=== PATIENT | female | born 1955 | race Caucasian/White ===

== ENCOUNTER 2017-03-24 13:11 | Emergency (ER) | payer BC ==
[2017-03-24 13:29] VITALS: BP 152/83
[2017-03-24] MEDS ORDERED: Ondansetron 4 MG/2 ML SDV IVPUSH ONE (13:38)
[2017-03-24] MEDS ORDERED: Sodium Chloride 0.9% 10 ML Syringe FLUSH PRN (13:38)
[2017-03-24] MEDS ORDERED: HYDROmorphone 0.5 MG/0.5 ML Syringe IVPUSH ONE ×2 (13:40→17:43)
[2017-03-24] MEDS ORDERED: Sodium Chloride 0.9% 1,000 ML IV SCH (13:45)
--- NOTE | 2017-03-24 13:49 | EDM.PDOC ---
ED HPI GENERAL MEDICAL PROBLEM - General Chief Complaint: Genitourinary Problem Stated Complaint: LOWER ABDOMINAL PAIN AND BACK PAIN Time Seen by Provider: 03/24/17 13:33 Source of Information: Reports: Patient History Limitations: Reports: No Limitations - History of Present Illness INITIAL COMMENTS - FREE TEXT/NARRATIVE: Patient is a 61 year old female who presents to the E.D. complaining of right flank pain and difficulty voiding for the past 3 days. She has history of kidney stones and states symptoms are similar to previous episodes. Pain is constant, sharp, with waxing in waning intensity. Currently a 03/07. Took aleve this a.m. Right Flank Pain Score (Numeric/FACES): 7 - Related Data Allergies Allergy/AdvReac Type Severity Reaction Status Date / Time Iodinated Contrast- Oral and Allergy Anaphylactic Verified 03/25/17 21:24 IV Dye Shock Home Meds: Home Meds Aspirin 81 mg PO DAILY 03/24/17 [History] Escitalopram [Lexapro] 20 mg PO DAILY 03/24/17 [History] Levofloxacin [Levaquin] 500 mg PO QAM #10 tablet 03/24/17 [Rx] Lisinopril 30 mg PO DAILY 03/24/17 [History] Multivitamin [Daily Surekha] 1 tab PO DAILY 03/24/17 [History] Tamsulosin HCl [Flomax] 0.4 mg PO QAM #10 cap.er.24h 03/24/17 [Rx] atorvaSTATin Calcium [Atorvastatin Calcium] 20 mg PO DAILY 03/24/17 [History] buPROPion [Wellbutrin XL] 150 mg PO DAILY 03/24/17 [History] metFORMIN HCl [Metformin HCl ER] 500 mg PO DAILY 03/24/17 [History] Past Medical History HEENT History: Reports: Impaired Vision Genitourinary History: Reports: Renal Calculus [employer] History: Reports: Musculoskeletal History: Reports: Other (See Below) Other Musculoskeletal History: gangleon cyst removed from wrist Endocrine/Metabolic History: Reports: Hyperparathyroidism - Past Surgical History Female Surgical History: Reports: Hysterectomy Endocrine Surgical History: Reports: Parathyroidectomy Social & Family History - Family History Cardiac: Reports: Afib Neurological: Reports: CVA - Tobacco Use Smoking Status *Q: Never Smoker - Caffeine Use Caffeine Use: Reports: Coffee, Tea - Recreational Drug Use Recreational Drug Use: No ED ROS GENERAL - Review of Systems Review Of Systems: See Below Constitutional: Denies: Fever, Chills, Decreased Appetite Respiratory: Reports: No Symptoms Cardiovascular: Reports: No Symptoms GI/Abdominal: Reports: Abdominal Pain (suprapubic ) : Reports: Flank Pain, Frequency, Urinary Retention. Denies: Discharge, Dysuria, Hematuria, Urgency Musculoskeletal: Reports: Back Pain Neurological: Denies: Dizziness, Headache ED EXAM, RENAL/ - Physical Exam Exam: See Below Exam Limited By: No Limitations General Appearance: Alert, WD/WN, Moderate Distress Ears: Hearing Grossly Normal Nose: Normal Inspection Throat/Mouth: Normal Voice, No Airway Compromise Neck: Normal Inspection, Supple Respiratory/Chest: No Respiratory Distress, Lungs Clear, Normal Breath Sounds, Chest Non-Tender Cardiovascular: Normal Peripheral Pulses, Regular Rate, Rhythm GI/Abdominal: Normal Bowel Sounds, Soft, Non-Tender, No Organomegaly, No Distention Back Exam: Normal Inspection, Full Range of Motion, CVA Tenderness (R). No: CVA Tenderness (L), Paraspinal Tenderness, Vertebral Tenderness Extremities: Normal Inspection, Normal Range of Motion, Non-Tender, No Pedal Edema, Normal Capillary Refill Neurological: Alert, Oriented, CN II-XII Intact, Normal Cognition, No Motor/ Sensory Deficits Psychiatric: Normal Affect, Normal Mood Skin Exam: Warm, Dry, Intact, Normal Color Course - Vital Signs Last Recorded V/S: Last Vital Signs Temp 97 F 03/24/17 13:26 Pulse 79 03/24/17 13:26 Resp 18 03/24/17 13:26 BP 152/83 H 03/24/17 13:26 Pulse Ox - Orders/Labs/Meds Labs: Laboratory Tests 03/24/17 03/24/17 03/24/17 Range/Units 14:02 14:02 14:02 WBC 10.76 H (3.98-10.04) K/mm3 RBC 4.30 (3.98-5.22) M/mm3 Hgb 13.0 (11.2-15.7) gm/L Hct 39.9 (34.1-44.9) % MCV 92.8 (79.4-94.8) fl MCH 30.2 (25.6-32.2) pg MCHC 32.6 (32.2-35.5) g/dl RDW Std Deviation 42.2 (36.4-46.3) fL Plt Count 268 (182-369) K/mm3 MPV 10.1 (9.4-12.3) fl Neut % (Auto) 62.0 (34.0-71.1) % Lymph % (Auto) 28.6 (19.3-51.7) % [place] % (Auto) 7.8 (4.7-12.5) % Eos % (Auto) 1.3 (0.7-5.8) Baso % (Auto) 0.3 (0.1-1.2) % Neut # (Auto) 6.67 H (1.56-6.13) K/mm3 Lymph # (Auto) 3.08 (1.18-3.74) K/mm3 [place] # (Auto) 0.84 H (0.24-0.36) K/mm3 Eos # (Auto) 0.14 (0.04-0.36) K/mm3 Baso # (Auto) 0.03 (0.01-0.08) K/mm3 Sodium 143 (136-145) mEq/L Potassium 4.3 (3.5-5.1) mEq/L Chloride 105 (98-107) mEq/L Carbon Dioxide 29 (21-32) mEq/L Anion Gap 13.3 (5-15) BUN 21 H (7-18) mg/dL Creatinine 1.1 H (0.55-1.02) mg/dL Est Cr Clr Drug Dosing 49.55 mL/min Estimated GFR (MDRD) 51 (>60) mL/min BUN/Creatinine Ratio 19.1 H (14-18) Glucose 101 (74-106) mg/dL Calcium 9.2 (8.5-10.1) mg/dL Total Bilirubin 0.3 (0.2-1.0) mg/dL AST 19 (15-37) U/L ALT 26 (14-59) U/L Alkaline Phosphatase 98 (46-116) U/L C-Reactive Protein 0.5 (<1.0) mg/dL Total Protein 7.5 (6.4-8.2) g/dl Albumin 4.0 (3.4-5.0) g/dl Globulin 3.5 gm/dL Albumin/Globulin Ratio 1.1 (1-2) Urine Color Light yellow (Yellow) Urine Appearance Cloudy H (Clear) Urine pH 7.0 (5.0-8.0) Ur Specific [place] 1.025 (1.005-1.030) Urine Protein 3+ H (Negative) Urine Glucose (UA) Negative (Negative) Urine Ketones Negative (Negative) Urine Occult Blood 3+ H (Negative) Urine Nitrite Positive H (Negative) Urine Bilirubin Negative (Negative) Urine Urobilinogen 0.2 (0.2-1.0) Ur Leukocyte Esterase 3+ H (Negative) Urine RBC 5-10 H (0-5) /hpf Urine WBC Too numerous to cnt H (0-5) /hpf Ur Epithelial Cells 0-5 (0-5) /hpf Urine Bacteria Moderate H (FEW) /hpf Urine Mucus Not seen (FEW) /hpf Meds: Medications Discontinued Medications Generic Name Dose Route Start Last Admin Trade Name Freq PRN Reason Stop Dose Admin Hydromorphone HCl 0.5 mg 03/24/17 13:40 03/24/17 14:13 Dilaudid IVPUSH 03/24/17 13:41 0.5 mg ONETIME ONE Administration Hydromorphone HCl 1 mg 03/24/17 15:18 03/24/17 15:23 Dilaudid IVPUSH 03/24/17 15:19 1 mg ONETIME ONE Administration Hydromorphone HCl 0.5 mg 03/24/17 17:43 03/24/17 17:48 Dilaudid IVPUSH 03/24/17 17:44 0.5 mg ONETIME ONE Administration Sodium Chloride 1,000 mls @ 250 mls/hr 03/24/17 13:45 03/24/17 14:11 Normal Saline IV 150 mls/hr ASDIRECTED KEELY Administration Levofloxacin/Dextrose 500 mg/ 100 mls @ 100 mls/hr 03/24/17 15:57 03/24/17 16 :15 Premix IV 03/24/17 16:56 100 mls/hr ONETIME ONE Administration Ketorolac Tromethamine 15 mg 03/24/17 16:05 03/24/17 16:13 Toradol IVPUSH 03/24/17 16:06 15 mg ONETIME ONE Administration Lorazepam 0.5 mg 03/24/17 16:05 03/24/17 16:11 Ativan IVPUSH 03/24/17 16:06 0.5 mg ONETIME ONE Administration Ondansetron HCl 4 mg 03/24/17 13:38 03/24/17 14:11 Zofran IVPUSH 03/24/17 13:39 4 mg ONETIME ONE Administration Sodium Chloride 10 ml 03/24/17 13:38 03/24/17 14:12 Saline Flush FLUSH 10 ml ASDIRECTED PRN Administration Keep Vein Open Tamsulosin HCl 0.4 mg 03/24/17 17:43 03/24/17 17:51 Flomax PO 03/24/17 17:44 0.4 mg ONETIME ONE Administration - Re-Assessments/Exams Free Text/Narrative Re-Assessment/Exam: Labs reviewed: White blood cell count 10.76, neutrophil percentage 61.0, neutrophil #6.67, hemoglobin 13.0, sodium 143, potassium 4.3, crit 1.1, glucose 101. UA revealed cloudy appearance, protein 3+, occult blood 3+, nitrates positive, leukocyte esterase 3+, rbc's 5-10, urine wbc's too numerous to count, bacteria moderate. Urine culture ordered. CT of the abdomen and pelvis ordered with iv contrast only. It was brought to by attention she is allergic to dye. Thus will obtain without. CT of the abdomen and pelvis without contrast impression: Moderate right sided hydronephrosis and hydroureter. An obstructing calculi is not identified. Differential diagnosis includes recently passed calculi, postsurgical stricture , nonopaque obstructing material menses (hemorrhage, purulence, nonopaque calculus ) Clinical correlation is recommended. Bilateral renal calyceal lithiasis. Leukocytosis. Prior hysterectomy. Coronary atherosclerosis. Orderd levaquin 500mg IV ,ativan 1 mg, and toradol 15mg IVP. 03/24/17 17:[address] Klein gambling monitor [facility]rologists at [facility].Suggest discharge home with pain medications, antibiotics, and flomax. Book a IVP and will see the patient in the clinic. Patients pain is controlled although not completely resolved. Ordered dilaudid 0.5m ivp and flomax 0.4mg PO. Will discharge patient home with instructions as documented. Departure - Departure Time of Disposition: 17:38 Disposition: Home, Self-Care 01 Condition: Good Clinical Impression: Hydroureter, Acute right flank pain, UTI, Urinary tract infectious disease Hydronephrosis Qualifiers: Hydronephrosis type: unspecified Qualified Code(s): N13.30 - Unspecified hydronephrosis UTI (urinary tract infection) Qualifiers: Urinary tract infection type: acute cystitis Hematuria presence: with hematuria Qualified Code(s): N30.01 - Acute cystitis with hematuria - Discharge Information Prescriptions: Levofloxacin [Levaquin] 500 mg PO QAM #10 tablet Tamsulosin HCl [Flomax] 0.4 mg PO QAM #10 cap.er.24h Instructions: Urinary Tract Infection, Adult, Hydronephrosis, Flank Pain, Easy- to-Read Referrals: Miri Mantilla NP [Primary Care Provider] - Forms: ED Department Discharge Additional Instructions: Call [facility] tomorrow morning to schedule IVP and appt with Dr. Klein Urologists that day to be evaluated and go over IVP. Tell them you have a contrast allergy. Take percocet 1-2 tabs every 4 to 6 hours for pain.Zofran 4mg ODT every 6 hours for nausea. Push the fluids. Take the full course of levaquin. Return to the E.D. for any new or worsening symptoms.
[2017-03-24] MEDS ORDERED: HYDROmorphone 1 MG/ML Syringe IVPUSH ONE (15:18)
[2017-03-24] MEDS ORDERED: Levofloxacin/Dextrose 5%-Water 500 MG in Premix Bag 1 BAG IV ONE (15:57)
[2017-03-24] MEDS ORDERED: Ketorolac 30 MG/ML SDV IVPUSH ONE (16:05)
[2017-03-24] MEDS ORDERED: LORazepam 2 MG/ML MDV IVPUSH ONE (16:05)
[2017-03-24] MEDS ORDERED: Tamsulosin 0.4 MG Cap.ER PO ONE (17:43)
--- NOTE | 2017-03-25 09:20 | CT ---
CT abdomen and pelvis Technique: Multiple axial sections were obtained from above the dome of the diaphragm inferiorly through the pubic symphysis. Intravenous and oral contrast was not utilized. This limits evaluation of bowel and solid organ evaluation. Comparison: No previous abdominal imaging. Findings: Right kidney shows mildly prominent collecting system and ureter. This changes caliber at a level of some surgical clips within the retroperitoneum and findings may relate to ureteral stenosis from scarring. Small nonobstructing calculi seen within both kidneys. Left ureter shows no dilatation. No abnormal calcifications are seen within the left ureter. Visualized lung bases show nothing acute. Noncontrast appearance of the liver is within normal limits. Spleen appears within normal limits. Small fatty lesion noted within the right adrenal gland compatible with incidental myelolipoma. This very small finding measures 7 mm. Adrenal glands are otherwise unremarkable. Calcified gallstones and probable sludge is seen within the gallbladder. Aorta shows atherosclerotic change without aneurysmal dilatation. Retroperitoneal surgical clips again noted. No mesenteric abnormalities are seen. No pelvic mass or adenopathy is seen. Appendix is seen and appears within normal limits. Bone window settings were reviewed which show degenerative change within the spine. Impression: 1. Right-sided hydronephrosis. Ureter becomes normal in size at level of surgical clips within the right retroperitoneum. This constellation of findings suggest the possibility of ureteral stenosis due to scarring. Urologic referral is recommended for consideration of stent. 2. Multiple small nonobstructing calculi within both kidneys. No ureteral stones are seen. 3. Other incidental findings as described above. Diagnostic code #3 I agree with preliminary report issued by [facility] ([facility] preliminary report dictated on 03/24/2017 at 4:48 PM Central Time)
== END 2017-03-24 18:00 | disposition home or self-care (01) ==
LOC: JD.ED 13:11
DX: N30.01 Acute cystitis with hematuria (principal); N13.30 Unspecified hydronephrosis; Z87.442 Personal history of urinary calculi; Z90.710 Acquired absence of both cervix and uterus; Z98.890 Other specified postprocedural states; Z79.84 Long term (current) use of oral hypoglycemic drugs; Z79.82 Long term (current) use of aspirin; Z79.899 Other long term (current) drug therapy; Z91.041 Radiographic dye allergy status
CPT/HCPCS: 36415; 74176; 80053; 81001; 85025; 86140; 87086; 87088; 87186; 96361; 96365; 96375; 96376; 99284; A9270; J1170; J1885; J1956; J2060; J2405; J7040; J7050

== ENCOUNTER 2017-03-25 19:07 | Emergency (ER) | payer BC ==
[2017-03-25 19:29] VITALS: BP 146/79
[2017-03-25] MEDS ORDERED: Sodium Chloride 0.9% 10 ML Syringe FLUSH PRN (19:34)
[2017-03-25] MEDS ORDERED: Acetaminophen 325 MG Tab PO ONE (19:40)
[2017-03-25] MEDS ORDERED: Sodium Chloride 0.9% 1,000 ML IV SCH (19:45)
[2017-03-25] MEDS ORDERED: HYDROmorphone 1 MG/ML Syringe IVPUSH ONE ×2 (19:45→21:40)
[2017-03-25] MEDS ORDERED: Ondansetron 4 MG/2 ML SDV IVPUSH ONE (19:45)
--- NOTE | 2017-03-25 19:52 | EDM.PDOC ---
ED HPI GENERAL MEDICAL PROBLEM - General Chief Complaint: Abdominal Pain Stated Complaint: FEVER/PAIN AND BLOCKAGE RIGHT SIDE Time Seen by Provider: 03/25/17 19:23 Source of Information: Reports: Patient History Limitations: Reports: No Limitations - History of Present Illness INITIAL COMMENTS - FREE TEXT/NARRATIVE: Patient is a 61-year-old female presents ED complaining of worsening right flank pain, fever, nausea, and dizziness. Patient was seen yesterday with concerns of having a kidney stone. CT of the abdomen was obtained revealing hydronephrosis, hydroureter, with no stone present in the kidney either it was past or there is possibly a stricture at the ureter. Patient had a radical hysterectomy and the 90s and there are surgical clips present within this area. UA was positive for infection thus was started on Levaquin 500 mg by mouth every day. She was started on Levaquin. Patient received a IV dose while in the ED. Patient took the Levaquin this morning. Pain was under control prior to discharge. Patient had no fever at that time. She has been taking narcotic medications for pain with minimal relief along with Zofran for nausea. She states the pain has progressively getting worse and is now developed a fever. Radiology suggested patient have a IVP. She attempted to make an appt with Urology at [facility] today and was told no opening see your PCP. They saw her PCP today and was instructed to come here for further evaluation. Patient was noted to have O2 sats of 91% with admission to the ED. She has no shortness of breath, cough, chest pain. She is dizzy. Her mouth is very dry. Right Flank Pain Score (Numeric/FACES): 7 - Related Data Allergies Allergy/AdvReac Type Severity Reaction Status Date / Time Iodinated Contrast- Oral and Allergy Anaphylactic Verified 03/25/17 21:24 IV Dye Shock Home Meds: Home Meds Aspirin 81 mg PO DAILY 03/24/17 [History] Escitalopram [Lexapro] 20 mg PO DAILY 03/24/17 [History] Levofloxacin [Levaquin] 500 mg PO QAM #10 tablet 03/24/17 [Rx] Lisinopril 30 mg PO DAILY 03/24/17 [History] Multivitamin [Daily Surekha] 1 tab PO DAILY 03/24/17 [History] Tamsulosin HCl [Flomax] 0.4 mg PO QAM #10 cap.er.24h 03/24/17 [Rx] atorvaSTATin Calcium [Atorvastatin Calcium] 20 mg PO DAILY 03/24/17 [History] buPROPion [Wellbutrin XL] 150 mg PO DAILY 03/24/17 [History] metFORMIN HCl [Metformin HCl ER] 500 mg PO DAILY 03/24/17 [History] Past Medical History HEENT History: Reports: Impaired Vision Genitourinary History: Reports: Renal Calculus 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: Musculoskeletal History: Reports: Other (See Below) Other Musculoskeletal History: gangleon cyst removed from wrist Endocrine/Metabolic History: Reports: Hyperparathyroidism - Past Surgical History Female Surgical History: Reports: Hysterectomy Endocrine Surgical History: Reports: Parathyroidectomy Social & Family History - Family History Cardiac: Reports: Afib Neurological: Reports: CVA - Tobacco Use Smoking Status *Q: Never Smoker - Caffeine Use Caffeine Use: Reports: Coffee, Tea - Recreational Drug Use Recreational Drug Use: No ED ROS GENERAL - Review of Systems Review Of Systems: ROS reveals no pertinent complaints other than HPI. ED EXAM, RENAL/ - Physical Exam Exam: See Below Exam Limited By: No Limitations General Appearance: Alert, WD/WN, Mild Distress Eye Exam: Bilateral Eye: PERRL Ears: Hearing Grossly Normal Nose: Normal Inspection Throat/Mouth: Normal Inspection, Normal Voice, No Airway Compromise, Other (dry oral mucosa) Head: Atraumatic, Normocephalic Neck: Normal Inspection, Supple Respiratory/Chest: No Respiratory Distress, Lungs Clear, Normal Breath Sounds, No Accessory Muscle Use Cardiovascular: Normal Peripheral Pulses, Regular Rate, Rhythm GI/Abdominal: Normal Bowel Sounds, Soft, Non-Tender Back Exam: CVA Tenderness (R), Other (Right flank/low back pain. ) Extremities: Normal Inspection, Normal Range of Motion, Non-Tender, No Pedal Edema, Normal Capillary Refill Neurological: Alert, Oriented, CN II-XII Intact, Normal Cognition, No Motor/ Sensory Deficits Psychiatric: Normal Affect, Normal Mood Skin Exam: Dry, Intact, Normal Color, No Rash, Increased Warmth Course - Vital Signs Last Recorded V/S: Last Vital Signs Temp 101.7 F H 03/25/17 19:32 Pulse 86 03/25/17 19:19 Resp 16 03/25/17 19:19 BP 146/79 H 03/25/17 19:19 Pulse Ox 96 03/25/17 19:19 - Orders/Labs/Meds Labs: Laboratory Tests 03/25/17 03/25/17 03/25/17 Range/Units 19:40 19:40 19:40 WBC 9.02 (3.98-10.04) K/mm3 RBC 3.81 L (3.98-5.22) M/mm3 Hgb 11.5 (11.2-15.7) gm/L Hct 36.2 (34.1-44.9) % MCV 95.0 H (79.4-94.8) fl MCH 30.2 (25.6-32.2) pg MCHC 31.8 L (32.2-35.5) g/dl RDW Std Deviation 43.3 (36.4-46.3) fL Plt Count 235 (182-369) K/mm3 MPV 9.5 (9.4-12.3) fl Neut % (Auto) 64.8 (34.0-71.1) % Lymph % (Auto) 24.5 (19.3-51.7) % Hamilton % (Auto) 9.3 (4.7-12.5) % Eos % (Auto) 1.1 (0.7-5.8) Baso % (Auto) 0.1 (0.1-1.2) % Neut # (Auto) 5.84 (1.56-6.13) K/mm3 Lymph # (Auto) 2.21 (1.18-3.74) K/mm3 Hamilton # (Auto) 0.84 H (0.24-0.36) K/mm3 Eos # (Auto) 0.10 (0.04-0.36) K/mm3 Baso # (Auto) 0.01 (0.01-0.08) K/mm3 PT 10.9 (8.0-13.0) SECONDS INR 1.00 APTT 29 (22-36) SECONDS Sodium 141 (136-145) mEq/L Potassium 4.1 (3.5-5.1) mEq/L Chloride 105 (98-107) mEq/L Carbon Dioxide 30 (21-32) mEq/L Anion Gap 10.1 (5-15) BUN 25 H (7-18) mg/dL Creatinine 1.3 H (0.55-1.02) mg/dL Est Cr Clr Drug Dosing 41.93 mL/min Estimated GFR (MDRD) 42 (>60) mL/min BUN/Creatinine Ratio 19.2 H (14-18) Glucose 147 H (74-106) mg/dL Lactic Acid (0.4-2.0) mmol/L Calcium 8.8 (8.5-10.1) mg/dL Total Bilirubin 0.3 (0.2-1.0) mg/dL AST 11 L (15-37) U/L ALT 20 (14-59) U/L Alkaline Phosphatase 84 (46-116) U/L C-Reactive Protein 5.7 H* (<1.0) mg/dL Total Protein 6.7 (6.4-8.2) g/dl Albumin 3.3 L (3.4-5.0) g/dl Globulin 3.4 gm/dL Albumin/Globulin Ratio 1.0 (1-2) Urine Color (Yellow) Urine Appearance (Clear) Urine pH (5.0-8.0) Ur Specific [place] (1.005-1.030) Urine Protein (Negative) Urine Glucose (UA) (Negative) Urine Ketones (Negative) Urine Occult Blood (Negative) Urine Nitrite (Negative) Urine Bilirubin (Negative) Urine Urobilinogen (0.2-1.0) Ur Leukocyte Esterase (Negative) Urine RBC (0-5) /hpf Urine WBC (0-5) /hpf Ur Epithelial Cells (0-5) /hpf Urine Bacteria (FEW) /hpf Urine Mucus (FEW) /hpf 03/25/17 03/25/17 Range/Units 20:03 21:08 WBC (3.98-10.04) K/mm3 RBC (3.98-5.22) M/mm3 Hgb (11.2-15.7) gm/L Hct (34.1-44.9) % MCV (79.4-94.8) fl MCH (25.6-32.2) pg MCHC (32.2-35.5) g/dl RDW Std Deviation (36.4-46.3) fL Plt Count (182-369) K/mm3 MPV (9.4-12.3) fl Neut % (Auto) (34.0-71.1) % Lymph % (Auto) (19.3-51.7) % Hamilton % (Auto) (4.7-12.5) % Eos % (Auto) (0.7-5.8) Baso % (Auto) (0.1-1.2) % Neut # (Auto) (1.56-6.13) K/mm3 Lymph # (Auto) (1.18-3.74) K/mm3 Hamilton # (Auto) (0.24-0.36) K/mm3 Eos # (Auto) (0.04-0.36) K/mm3 Baso # (Auto) (0.01-0.08) K/mm3 PT (8.0-13.0) SECONDS INR APTT (22-36) SECONDS Sodium (136-145) mEq/L Potassium (3.5-5.1) mEq/L Chloride (98-107) mEq/L Carbon Dioxide (21-32) mEq/L Anion Gap (5-15) BUN (7-18) mg/dL Creatinine (0.55-1.02) mg/dL Est Cr Clr Drug Dosing mL/min Estimated GFR (MDRD) (>60) mL/min BUN/Creatinine Ratio (14-18) Glucose (74-106) mg/dL Lactic Acid 1.4 (0.4-2.0) mmol/L Calcium (8.5-10.1) mg/dL Total Bilirubin (0.2-1.0) mg/dL AST (15-37) U/L ALT (14-59) U/L Alkaline Phosphatase (46-116) U/L C-Reactive Protein (<1.0) mg/dL Total Protein (6.4-8.2) g/dl Albumin (3.4-5.0) g/dl Globulin gm/dL Albumin/Globulin Ratio (1-2) Urine Color Yellow (Yellow) Urine Appearance Clear (Clear) Urine pH 6.0 (5.0-8.0) Ur Specific [place] 1.025 (1.005-1.030) Urine Protein 1+ H (Negative) Urine Glucose (UA) Negative (Negative) Urine Ketones Negative (Negative) Urine Occult Blood 2+ H (Negative) Urine Nitrite Negative (Negative) Urine Bilirubin Negative (Negative) Urine Urobilinogen 0.2 (0.2-1.0) Ur Leukocyte Esterase 3+ H (Negative) Urine RBC 0-5 (0-5) /hpf Urine WBC 20-30 H (0-5) /hpf Ur Epithelial Cells 0-5 (0-5) /hpf Urine Bacteria Few (FEW) /hpf Urine Mucus Few (FEW) /hpf Meds: Medications Discontinued Medications Generic Name Dose Route Start Last Admin Trade Name Fabricio PRN Reason Stop Dose Admin Acetaminophen 975 mg 03/25/17 19:40 03/25/17 20:02 Tylenol PO 03/25/17 19:41 975 mg NOW ONE Administration Enoxaparin Sodium 100 mg 03/25/17 21:30 03/25/17 21:46 Lovenox SUBCUT 03/25/17 21:31 100 mg ONETIME ONE Administration Hydromorphone HCl 0.5 mg 03/25/17 19:45 03/25/17 19:57 Dilaudid IVPUSH 03/25/17 19:46 0.5 mg ONETIME ONE Administration Hydromorphone HCl 0.5 mg 03/25/17 21:40 03/25/17 21:44 Dilaudid IVPUSH 03/25/17 21:41 0.5 mg ONETIME ONE Administration Sodium Chloride 1,000 mls @ 250 mls/hr 03/25/17 19:45 03/25/17 23:20 Normal Saline IV 75 mls/hr ASDIRECTED KEELY Infusion Ceftriaxone Sodium 1 gm/ 100 mls @ 200 mls/hr 03/25/17 20:02 03/25/17 20:50 Sodium Chloride IV 03/25/17 20:31 Not Given ONETIME ONE Ceftriaxone Sodium 1 gm/ 100 mls @ 200 mls/hr 03/25/17 20:15 03/25/17 21:03 Sodium Chloride IV 200 mls/hr Q24H KEELY Administration Methylprednisolone Sodium Succinate 40 mg 03/25/17 22:41 Solu-Medrol IVPUSH 03/25/17 22:42 ONETIME ONE Ondansetron HCl 4 mg 03/25/17 19:45 03/25/17 19:58 Zofran IVPUSH 03/25/17 19:46 4 mg ONETIME ONE Administration Ondansetron HCl 4 mg 03/26/17 00:24 03/26/17 00:28 Zofran IVPUSH 03/26/17 00:25 4 mg ONETIME ONE Administration Sodium Chloride 10 ml 03/25/17 19:34 03/25/17 20:04 Saline Flush FLUSH 10 ml ASDIRECTED PRN Administration Keep Vein Open - Re-Assessments/Exams Free Text/Narrative Re-Assessment/Exam: Order peripheral IV with normal saline 250 mls per hour, Zofran 4 mg IVP, Dilaudid 0.5 mg IVP, and Tylenol 975 by mouth. Initial labs and studies include CBC, chem 14, CRP, bladder scan, UA, chest x- ray, blood cultures 2, lactic acid, total bilirubin, and Coags. 03/25/17 21:[address] Harding he has accepted the patient. He requests rocephin 1 gram IV. If patient will be in our E.D. for some time prior to transport request Right kidney ultrasound. Transport will be delayed due to inadequate number of ambulances available for transfer. The one available was utilized to transfer a patient out of the E.D. to [facility]. CXR reviewed with Dr. Marsh with no acute findings noted. Final interpretation pending. On initial admission patients O2 sats 87 to 90% on room air. Placed on O2 via NC 2 lpm bumped up to 95%. On examination patient has no signs of DVT. Further questioning patient has a history of blood clots to her lower legs and lungs. Patient has been sedentary all day and with current infection is concerning for development of DVT/PE. Labs reviewed: Labs reviewed: White blood cell count 9.02, hemoglobin 11.5, platelet count 235, no leukocytosis, coags normal, sodium 141, potassium 4.1, creatinine 1.3, glucose 147, lactic acid 1.4, and CRP 5.7. UA positive for occult blood, 3+ leukocyte Estrace, and with WBCs 20-30. Labs obtained 03/24/17 White blood cell count 10.76, neutrophil percentage 61.0, neutrophil #6.67, hemoglobin 13.0, sodium 143, potassium 4.3, crit 1.1, glucose 101. UA revealed cloudy appearance, protein 3+, occult blood 3+, nitrates positive, leukocyte esterase 3+, rbc's 5-10, urine wbc's too numerous to count, bacteria moderate. Labs showed improvement. Patient complaining worsening pain and fever today. [address] Harding he recommends CTA of the chest to evaluate for PE and proceed with CT of the abdomen and pelvis with contrast to further delineate. Patient has allergy to contrast. Suggest premedicating with 40mg of solumedrol and 50mg of benadryl. 03/25/17 21:12 Spoke with the patient. Reaction is anaphylaxis. Request no contrast. Bladder scan 380 mls with no sensation to urinate. 03/25/17 21:15 Spoke with patient. She requests not having contrast. 03/25/17 21:31 Dr. Harding was contacted and he requested lovenox SQ. Will treat as she has a PE lovenox 1mg/Kg. Ordered right kidney ultrasound and VL duplex of lower extremities to rule out DVT. Patient was premedicated with prednisone in preparation if deemed necessary patient requires CT with contrast with admission to [facility]. 03/25/17 23:13 Results of ultrasound of the right kidney and lower extremities are pending. Patient transfer will be delayed further. Ambulance will not be available due to transporting flight crew and patient from the ED to the airport for emergency transfer out. Departure - Departure Time of Disposition: 00:30 Disposition: DC/Tfer to Acute Hospital 02 Condition: Fair Clinical Impression: Pyelonephritis, Hypoxia, Acute right flank pain, Hydroureter Fever Qualifiers: Fever type: unspecified Qualified Code(s): R50.9 - Fever, unspecified Hydronephrosis Qualifiers: Hydronephrosis type: unspecified Qualified Code(s): N13.30 - Unspecified hydronephrosis - Discharge Information Referrals: Miri Mantilla NP [Primary Care Provider] - Forms: ED Department Discharge
[2017-03-25] MEDS ORDERED: cefTRIAXone 1 GM in Sodium Chloride 0.9% 100 ML IV ONE (20:02)
[2017-03-25] MEDS ORDERED: cefTRIAXone 1 GM in Sodium Chloride 0.9% 100 ML IV SCH (20:15)
[2017-03-25] MEDS ORDERED: Enoxaparin 100 MG/1 ML Syringe SUBCUT ONE (21:30)
[2017-03-25] MEDS ORDERED: methylPREDNISolone Sodium Succinate 40 MG/1 ML SDV IVPUSH ONE (22:41)
[2017-03-26] MEDS ORDERED: Ondansetron 4 MG/2 ML SDV IVPUSH ONE (00:24)
--- NOTE | 2017-03-26 07:19 | US ---
Renal ultrasound: Multiple real-time images were obtained. Comparison: Previous CT exam of 03/24/17. Right-sided hydronephrosis is seen correlating to hydronephrosis seen on CT exam. Left kidney shows no significant hydronephrosis. Small renal calculi that are that are seen on CT exam are too small to identify by ultrasound exam. Proximal right ureter is dilated. Measurements: Right kidney: 11.4 cm in length Left kidney: 11.6 cm in length Resistivity indices: Within normal limits for both kidneys Bladder: Prevoid volume 550 mL and post void volume 74 mL Impression: 1. Moderate right sided hydronephrosis with dilated proximal right ureter correlating to findings on recent CT exam. 2. Postvoid residual. No additional abnormality is appreciated. Diagnostic code #3 Agree with preliminary report issued by [facility] (preliminary [facility] report dictated on 03/26/17, 12:43 AM Central Time)
--- NOTE | 2017-03-26 07:19 | CR ---
Chest: Two views of the chest were obtained. Comparison: No prior study. Heart size and mediastinum are normal. Lungs are clear. Bony structures show mild degenerative spurring within the mid and lower thoracic spine. Minimal anterior wedge deformity is noted within the midthoracic spine which is felt to be old. Impression: 1. Incidental findings. Nothing acute is identified. Diagnostic code #2
--- NOTE | 2017-03-26 07:19 | US ---
Bilateral lower extremity deep venous ultrasound: Duplex and color flow imaging was obtained of the right and left common femoral, proximal greater saphenous, superficial femoral, popliteal, posterior tibial and peroneal veins. Findings: Normal phasic flow, augmentation and compression are seen. Small popliteal cyst is noted on the right side measuring 2.9 cm. Impression: 1. No findings of deep venous thrombosis within either the right or left lower extremity. 2. Incidental right popliteal cyst. Diagnostic code #2 Agree with preliminary report issued by [employer] (preliminary [facility] report dictated on 03/26/17, 12:25 AM Central Time)
== END 2017-03-26 00:30 ==
LOC: JD.ED 19:07
DX: N13.30 Unspecified hydronephrosis (principal); N12 Tubulo-interstitial nephritis, not specified as acute or chronic; N13.4 Hydroureter; Z87.442 Personal history of urinary calculi; Z90.710 Acquired absence of both cervix and uterus; Z79.82 Long term (current) use of aspirin; Z79.899 Other long term (current) drug therapy; Z91.041 Radiographic dye allergy status
CPT/HCPCS: 36415; 51798; 71020; 76770; 80053; 81001; 83605; 85025; 85610; 85730; 86140; 87040; 93970; 96361; 96365; 96372; 96375; 96376; 99285; A9270; J0696; J1170; J1650; J2405; J7030; J7040; J7050; 99284

== ENCOUNTER 2020-10-26 01:58 | Emergency (ER) | payer BC, MEDICAID ==
[2020-10-26 02:16] VITALS: BP 166/94; PULSE 75
[2020-10-26] MEDS ORDERED: Sodium Chloride 0.9% 1,000 ML IV SCH (02:30)
[2020-10-26] MEDS ORDERED: Ketorolac 15 MG/ML SDV IVPUSH ONE (02:45)
--- NOTE | 2020-10-26 03:04 | EDM.PDOC ---
ED HPI GENERAL MEDICAL PROBLEM - General Chief Complaint: Genitourinary Problem Stated Complaint: POSS KIDNEY STONE Time Seen by Provider: 10/26/20 02:10 Source of Information: Reports: Patient History Limitations: Reports: No Limitations - History of Present Illness INITIAL COMMENTS - FREE TEXT/NARRATIVE: The patient has come in with suspected kidney stone on the right side. Was onset of right flank pain about 11 PM on the about 4 hours ago. She has a long history of kidney stones. She has had various procedures including lithotripsy for these. The pain has been intermittent but quite severe. At the present time she is uncomfortable. Risk factors consist of history of kidney stones, [id number] diabetes mellitus, and hypertension. She quit smoking in 1994. Patient has not taken any medication or tried any other measure to moderate symptoms prior to arrival at the emergency department. Other surgeries in the past consist of a hysterectomy in 1994 for cervical cancer and more recently in August of this year a cholecystectomy where multiple stones were noted including a common bile duct stone. There has also been a parathyroidectomy. There has been no fever respiratory symptoms chest pain vomiting or any other symptoms of acute illness or condition leading up to the presentation tonight. Patient is visiting from [place] and is been here about a month. Right Flank Pain Score (Numeric/FACES): 10 - Related Data Allergies Allergy/AdvReac Type Severity Reaction Status Date / Time Iodinated Contrast Media Allergy Anaphylactic Verified 10/26/20 02:16 [Iodinated Contrast- Oral Shock and IV Dye] Home Meds: Home Meds Aspirin 81 mg PO DAILY 03/24/17 [History] Escitalopram [Lexapro] 20 mg PO DAILY 03/24/17 [History] Multivitamin [Daily Surekha] 1 tab PO DAILY 03/24/17 [History] atorvaSTATin Calcium [Atorvastatin Calcium] 20 mg PO DAILY 03/24/17 [History] buPROPion [Wellbutrin XL] 150 mg PO DAILY 03/24/17 [History] metFORMIN HCl [Metformin HCl ER] 1,000 mg PO BID 03/24/17 [History] Losartan [Cozaar] 100 mg PO DAILY 10/26/20 [History] Melatonin 10 mg PO DAILY 10/26/20 [History] levoFLOXacin [Levaquin] 250 mg PO DAILY #7 tab 10/26/20 [Rx] Past Medical History HEENT History: Reports: Impaired Vision Cardiovascular History: Reports: High Cholesterol, Hypertension Genitourinary History: Reports: Renal Calculus [employer] History: Reports: Musculoskeletal History: Reports: Other (See Below) Other Musculoskeletal History: gangleon cyst removed from wrist Endocrine/Metabolic History: Reports: Hyperparathyroidism - Past Surgical History Female Surgical History: Reports: Hysterectomy, Ureteral Stent Endocrine Surgical History: Reports: Parathyroidectomy Social & Family History - Family History Cardiac: Reports: Afib Neurological: Reports: CVA - Tobacco Use Tobacco Use Status *Q: Never Tobacco User - Caffeine Use Caffeine Use: Reports: Coffee, Tea - Recreational Drug Use Recreational Drug Use: No ED ROS GENERAL - Review of Systems Review Of Systems: Comprehensive ROS is negative, except as noted in HPI. ED EXAM, RENAL/ - Physical Exam Exam: See Below Text/Narrative:: On exam the patient is alert and pleasant and in no acute distress. Skin is warm and dry with normal turgor. Head normocephalic atraumatic. PERRLA EOMI. Neck is supple without jugular venous distention. She is comfortable almost flat on the gurney. Lungs are clear and breath sounds are full and equal bilaterally. Heart is regular without murmur. Abdomen is soft and nontender there is no guarding or rebound at the present time there is no tenderness on deep palpation of the flanks. There is no peripheral edema cyanosis or clubbing of the digits. Patient is neurologically intact with fluent speech and no motor or sensory deficits. Cognition is intact. She is pleasant and good humored with normal affect. #1 Interpretation EKG Date: 10/26/20 Time: 03:04 (low voltage) Rhythm: NSR Rate (Beats/Min): 71 [place]: Normal P-Wave: Present QRS: Normal ST-T: Other (Inverted T waves in lead III) QT: Normal Comparison: NA - No Prior EKG Course - Vital Signs Text/Narrative:: Patient has received IV fluids and Toradol. She has tolerated her visit in the ER well and has remained fairly comfortable. CT does not show a ureteral stone. It does show a 3 mm stone in the bladder which is probably been recently passed. There is evidence of urinary tract infection. There is no white count and patient does not appear acutely infected or toxic. She was questioned about antibiotic use in the past. She knows she has been treated with Levaquin before but it has not been recently. In fact there has been no recent treatment for urinary tract infection. She will receive 500 mg of Levaquin IV in the emergency room. She will be discharged on Levaquin 250 mg daily for an additional 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 This is chronic but needs to be evaluated by urology. The patient is going back to [place] in less than a week. She will call today to make arrangements for a urologist to see her upon her return. She was given a copy of her CT report that was done tonight. She is strongly cautioned regarding potential issues that would make it necessary to have medical attention prior to her return to [place]. See instructions to patient below. Last Recorded V/S: Last Vital Signs Temp 36.5 C 10/26/20 02:14 Pulse 75 10/26/20 02:14 Resp 18 10/26/20 02:14 BP 166/94 H 10/26/20 02:14 Pulse Ox 95 10/26/20 02:14 - Orders/Labs/Meds Orders: Active Orders 24 hr Category Date Time Status EKG Documentation Completion [RC] STAT Care 10/26/20 02:26 Active Abdomen Pelvis wo Cont [CT] Stat Exams 10/26/20 02:27 Taken CULTURE URINE [RM] Stat Lab 10/26/20 04:22 Received Levofloxacin/Dextrose 5%-Water [Levaquin in D5W 500 MG/ Med 10/26/20 04:58 Ordered 100 ML] 500 mg Premix Bag 1 bag IV ONETIME Sodium Chloride 0.9% [Normal Saline] 1,000 ml Med 10/26/20 02:30 Active IV ASDIRECTED Medication Orders Sodium Chloride (Normal Saline) 1,000 mls @ 150 mls/hr IV ASDIRECTED KEELY Last Infusion: 10/26/20 04:31 Dose: 150 mls/hr Documented by: Infusion: 10/26/20 03:59 Dose: 999 mls/hr Documented by: Admin: 10/26/20 02:44 Dose: 150 mls/hr Documented by: CORA Levofloxacin/Dextrose 500 mg/ (Premix) 100 mls @ 100 mls/hr IV ONETIME ONE Stop: 10/26/20 05:57 Labs: Laboratory Tests 10/26/20 10/26/20 10/26/20 Range/Units 02:35 02:35 04:22 WBC 8.13 (3.98-10.04) K/mm3 RBC 4.27 (3.98-5.22) M/mm3 Hgb 12.3 (11.2-15.7) gm/dl Hct 39.8 (34.1-44.9) % MCV 93.2 (79.4-94.8) fl MCH 28.8 (25.6-32.2) pg MCHC 30.9 L (32.2-35.5) g/dl RDW Std Deviation 44.1 (36.4-46.3) fL Plt Count 309 (182-369) K/mm3 MPV 9.4 (9.4-12.3) fl Neutrophils % (Manual) 54 (40-60) % Band Neutrophils % 0 (0-10) % Lymphocytes % (Manual) 36 (20-40) % Atypical Lymphs % 0 % Monocytes % (Manual) 6 (2-10) % Eosinophils % (Manual) 3 (0.7-5.8) % Basophils % (Manual) 1 (0.1-1.2) Platelet Estimate Adequate RBC Morph Comment Normal Sodium 142 (136-145) mEq/L Potassium 4.8 (3.5-5.1) mEq/L Chloride 104 (98-107) mEq/L Carbon Dioxide 28 (21-32) mEq/L Anion Gap 14.8 (5-15) BUN 23 H (7-18) mg/dL Creatinine 1.3 H (0.55-1.02) mg/dL Est Cr Clr Drug Dosing 40.38 mL/min Estimated GFR (MDRD) 42 (>60) mL/min BUN/Creatinine Ratio 17.7 (14-18) Glucose 139 H (80-115) mg/dL Calcium 9.3 (8.5-10.1) mg/dL Magnesium 1.7 L (1.8-2.4) mg/dl Total Bilirubin 0.3 (0.2-1.0) mg/dL AST 16 (15-37) U/L ALT 30 (14-59) U/L Alkaline Phosphatase 91 (46-116) U/L Creatine Kinase 57 (26-192) U/L Troponin I < 0.017 (0.00-0.056) ng/mL Total Protein 7.5 (6.4-8.2) g/dl Albumin 3.7 (3.4-5.0) g/dl Globulin 3.8 gm/dL Albumin/Globulin Ratio 1.0 (1-2) Amylase 51 (25-115) U/L Lipase 283 (73-393) U/L Urine Color Yellow (Yellow) Urine Appearance Slt cloudy H (Clear) Urine pH 5.5 (5.0-8.0) Ur Specific [place] 1.015 (1.005-1.030) Urine Protein Negative (Negative) Urine Glucose (UA) Negative (Negative) Urine Ketones Negative (Negative) Urine Occult Blood 2+ H (Negative) Urine Nitrite Negative (Negative) Urine Bilirubin Negative (Negative) Urine Urobilinogen 0.2 (0.2-1.0) Ur Leukocyte Esterase 3+ H (Negative) U Hyaline Cast (Auto) 0-5 (0-5) /lpf Urine RBC 40-50 H (0-5) /hpf Urine WBC >100 H (0-5) /hpf Urine WBC Clumps Few (NOT SEEN) /hpf Ur Squamous Epith Cells 0-5 (0-5) /hpf Urine Bacteria Moderate H (FEW) /hpf Urine Mucus Rare (FEW) /hpf Meds: Medications Generic Name Dose Route Start Last Admin Trade Name Freq PRN Reason Stop Dose Admin Sodium Chloride 1,000 mls @ 150 mls/hr 10/26/20 02:30 10/26/20 04:31 Normal Saline IV 150 mls/hr ASDIRECTED KEELY Infusion Levofloxacin/Dextrose 500 mg/ 100 mls @ 100 mls/hr 10/26/20 04:58 Premix IV 10/26/20 05:57 ONETIME ONE Discontinued Medications Generic Name Dose Route Start Last Admin Trade Name Freq PRN Reason Stop Dose Admin Ketorolac Tromethamine 15 mg 10/26/20 02:45 10/26/20 02:51 Ketorolac 15 Mg/Ml Sdv IVPUSH 10/26/20 02:46 15 mg ONETIME ONE Administration Departure - Departure Time of Disposition: 05:17 Disposition: Home, Self-Care 01 Condition: Good Clinical Impression: Ureteral colic, Nephrolithiasis, Bladder stone, Ureteral stricture, right UTI (urinary tract infection) Qualifiers: Urinary tract infection type: site unspecified Hematuria presence: with hematuria Qualified Code(s): N39.0 - Urinary tract infection, site not specifie d; R31.9 - Hematuria, unspecified - Discharge Information Prescriptions: levoFLOXacin [Levaquin] 250 mg PO DAILY #7 tab Forms: ED Department Discharge Additional Instructions: You have been seen tonight for symptoms of a kidney stone passing. There is a small stone in your bladder and it was probably recently passed through the ureter. There is evidence of urinary tract infection and for this you are being treated with Levaquin. 500 mg IV in the ER and 250 mg daily for [address] scan shows evidence of a stricture of the ureter on the right. This has been noted previously. This should be investigated by urologist. It is suggested that you call today to make arrangements to be seen right away by a urologist upon your return to [place]. If you have any further problems prior to your return to [place] such as fever, pain suggestive of kidney stones or any other symptom of acute illness return to the emergency department immediately. Sepsis Event Note (ED) - Evaluation Sepsis Screening Result: No Definite Risk - Focused Exam Vital Signs: Vital Signs Temp Pulse Resp BP Pulse Ox 10/26/20 02:14 36.5 C 75 18 166/94 H 95 - My Orders Last 24 Hours: My Active Orders 10/26/20 02:26 EKG Documentation Completion [RC] STAT 10/26/20 02:27 Abdomen Pelvis wo Cont [CT] Stat 10/26/20 02:30 Sodium Chloride 0.9% [Normal Saline] 1,000 ml IV ASDIRECTED 10/26/20 04:22 CULTURE URINE [RM] Stat 10/26/20 04:58 Levofloxacin/Dextrose 5%-Water [Levaquin in D5W 500 MG/100 ML] 500 mg Premix Bag 1 bag IV ONETIME - Assessment/Plan Last 24 Hours: My Active Orders 10/26/20 02:26 EKG Documentation Completion [RC] STAT 10/26/20 02:27 Abdomen Pelvis wo Cont [CT] Stat 10/26/20 02:30 Sodium Chloride 0.9% [Normal Saline] 1,000 ml IV ASDIRECTED 10/26/20 04:22 CULTURE URINE [RM] Stat 10/26/20 04:58 Levofloxacin/Dextrose 5%-Water [Levaquin in D5W 500 MG/100 ML] 500 mg Premix Bag 1 bag IV ONETIME
[2020-10-26] MEDS ORDERED: Levofloxacin/Dextrose 5%-Water 500 MG in Premix Bag 1 BAG IV ONE (04:58)
--- NOTE | 2020-10-26 09:03 | CT ---
CT abdomen and pelvis Technique: Multiple axial sections were obtained from above the dome of the diaphragm inferiorly through the pubic symphysis. Intravenous and oral contrast was not utilized. Reconstructed coronal and sagittal images were obtained. Comparison: Prior CT abdomen and pelvis exam of 03/24/17. Findings: Right kidney shows hydronephrosis of the collecting systems. Right ureter is also dilated down to the mid pelvis at which time it becomes normal in size. Dilatation is fairly stable from previous exam. No ureteral calculi are seen. Area of narrowing within the mid pelvis is most likely due to ureteral scarring. Two small nonobstructing calculi are seen within the right kidney. These measure 3 mm or less in size. Small cyst is noted within the right kidney measuring 1.2 cm. Minimal areas of increased density are seen around the right kidney which are felt to be fairly stable. Left kidney appears normal. Visualized lung bases show nothing acute. Noncontrast appearance of the liver shows no focal parenchymal abnormality. Spleen appears normal. Surgical clips are seen from prior cholecystectomy. Adrenal glands show no nodule. No abnormality is seen within the pancreas. Abdominal aorta shows no aneurysm. Atherosclerotic change is seen within the aorta. Multiple surgical clips are noted within the retroperitoneal area within the lower abdomen and pelvis. Appendix is seen which is normal. No pelvic mass or adenopathy is appreciated. No bowel dilatation is appreciated. Scattered degenerative change is noted within the spine. No acute osseous finding is appreciated. Minimal scattered lymph nodes are seen which do not appear large enough to indicate pathology. Impression: 1. Prominent dilatation of the right renal collecting system as well as a portion of the right ureter. Distal right ureter is normal in size. These findings most likely represent scarring at the mid to distal right ureter within the mid pelvis. These findings are stable from prior exam. 2. Two small nonobstructing stones within the right kidney. Small right renal cyst. 3. Other findings as noted above. No other acute abnormality is appreciated. Diagnostic code #3 I mildly disagree with preliminary report from [facility], finalized on 10/26/20 CDT
== END 2020-10-26 06:16 | disposition home or self-care (01) ==
LOC: JD.ED 01:58
DX: N39.0 Urinary tract infection, site not specified (principal); N21.0 Calculus in bladder; N13.5 Crossing vessel and stricture of ureter without hydronephrosis; N20.2 Calculus of kidney with calculus of ureter; E78.00 Pure hypercholesterolemia, unspecified; I10 Essential (primary) hypertension; E21.3 Hyperparathyroidism, unspecified; Z79.82 Long term (current) use of aspirin; Z79.84 Long term (current) use of oral hypoglycemic drugs; Z79.899 Other long term (current) drug therapy; Z91.041 Radiographic dye allergy status
CPT/HCPCS: 36415; 74176; 80053; 81001; 82150; 82550; 83690; 83735; 84484; 85007; 85027; 87086; 87088; 87186; 93005; 96365; 96375; 99284; J1885; J1956; J7030; 93010

== ENCOUNTER 2025-04-27 14:26 | Emergency (ER) | payer MEDICARE ==
[2025-04-27 15:36] LABS: BASOPHILS ABSOLUTE AUTO 0.0 K/mm3 (0.0-0.2); BASOPHILS PERCENT AUTO 0.3 % (0.0-1.0); EOSINOPHILS ABSOLUTE AUTO 0.0 K/mm3 (0.0-0.4); EOSINOPHILS PERCENT AUTO 0.5 % (0.0-6.0); IMMATURE GRAN ABSOLUTE AUTO 0.03 K/mm3 (0.00-0.05); IMMATURE GRAN PERCENT AUTO 0.4 % (0.0-0.4); LYMPHOCYTES ABSOLUTE AUTO 2.8 K/mm3 (1.0-4.8); LYMPHOCYTES PERCENT AUTO 37.9 % (24.0-44.0); MEAN PLATELET VOLUME 9.8 fl (9.4-12.3); MONOCYTES ABSOLUTE AUTO 0.4 K/mm3 (0.0-0.8); MONOCYTES PERCENT AUTO 5.5 % (0.0-8.0); NEUTROPHILS ABSOLUTE AUTO 4.2 K/mm3 (1.8-7.7); NEUTROPHILS PERCENT AUTO 55.4 % (41.0-71.0); NRBC ABSOLUTE 0.00 (0.00-0.02); NRBC PERCENT 0.0 % (0.0-0.2); PLATELET COUNT,PLT 301 K/mm3 (150-400); RED BLOOD CELL COUNT 4.48 M/mm3 (4.10-5.30); WHITE BLOOD CELL COUNT,WBC 7.50 K/mm3 (3.9-11.3)
[2025-04-27 15:50] LABS: A/G RATIO 1.1 (1-2); ALANINE AMINOTRANSFERASE,ALT 21.0 U/L (14-59); ASPARTATE AMNIOTRANSFERASE,AST 13.0 U/L (15-37); BILIRUBIN TOTAL 0.4 mg/dL (0.2-1.0); BLOOD UREA NITROGEN,BUN 36.0 mg/dL (7-18); CARBON DIOXIDE,CO2 25.0 mEq/L (21-32); CHLORIDE,CL 102.0 mEq/L (98-107); CREATINE KINASE,CK 61.0 U/L (26-192); CREATININE 1.8 mg/dL (0.55-1.02); EST CRCL DRUG DOSING (CG) 27.29 mL/min; ESTIMATED GFR 31.0 mL/min (>60); GLUCOSE RANDOM 172.0 mg/dL (70-99); POTASSIUM,K 3.1 mEq/L (3.5-5.1); PROTEIN TOTAL,TP 7.4 g/dl (6.4-8.2); SODIUM,NA 142.0 mEq/L (136-145); TROPONIN I HIGH SENSITIVITY 6.0 pg/mL (<=51)
[2025-04-27] MEDS: Potassium Chloride 20 MEQ Tab.ER PO ONE (16:32)
[2025-04-27] MEDS: Magnesium Sulf/Wat 4 GM/50 mL 4 GM in Premix Bag 1 BAG IV ONE (16:33)
[2025-04-27 19:27] VITALS: BP 100/69; PULSE 79
== END 2025-04-27 19:00 | disposition home or self-care (01) ==
LOC: JD.ED 14:26
DX: R07.9 Chest pain, unspecified (principal); E87.6 Hypokalemia; E83.42 Hypomagnesemia; I12.9 Hypertensive chronic kidney disease with stage 1 through stage 4 chronic kidney disease, or unspecified chronic kidney disease; N18.9 Chronic kidney disease, unspecified; F45.0 Somatization disorder; N17.9 Acute kidney failure, unspecified; R53.1 Weakness; R25.1 Tremor, unspecified; E78.00 Pure hypercholesterolemia, unspecified; Z90.710 Acquired absence of both cervix and uterus; Z91.041 Radiographic dye allergy status; Z79.82 Long term (current) use of aspirin; Z79.84 Long term (current) use of oral hypoglycemic drugs; Z79.899 Other long term (current) drug therapy
CPT/HCPCS: 36415; 71045; 80053; 82550; 83690; 83735; 84484; 85025; 93005; 96361; 96365; 96366; 96368; 99285; A9270; J3475; J3480; J7030; 93010; 99283